=== PATIENT | female | born 1995 | race African-American/Black ===

== ENCOUNTER 2025-07-30 10:49 | Emergency (ER) | payer MEDICAID, OTHER ==
[~2025-07-30] VITALS: Ht 170.2 cm; Wt 66.0 kg
[2025-07-30 11:23] VITALS: O2SAT 99
[2025-07-30] MEDS ORDERED: ACET-2708 MT (13:41)
[2025-07-30] MEDS ORDERED: CEPH500C2 MT (13:41)
[2025-07-30 13:55] VITALS: BP 131/56; PULSE 80; RESP 16; TEMP 36.6; O2SAT 99
== END 2025-07-30 14:07 | disposition home or self-care (01) ==
LOC: ER 10:49
DX: L02.212 Cutaneous abscess of back [any part, except buttock and flank] (principal); M54.9 Dorsalgia, unspecified
CPT/HCPCS: 99283